=== PATIENT | male | born 1950 | race Caucasian/White ===

== ENCOUNTER → 2024-12-25 15:56 | Outpatient (CLI) | payer MEDICARE, OTHER, SELFPAY ==
--- NOTE | 2024-12-25 16:00 | DI.ECHO.S_ITS ---
[facility] : : [address] : : [place] : : [id number] : : Phone: [phone] Echocardiogram Report + + :Name: MEGHA AYALA Study Date: 12/25/2024 Height: 71 in : :[facility] ReadingLocation: Weight: 200 lb : : Gender: Male BSA: 2.1 m2 : :: 1950 Age: 74 yrs BP: 156/77 mmHg: :Reason For Study: HYPERTENSION : :Ordering Physician: JAZMIN, : :HERMAN Delgado Performed By: Brett Jacob : :Referring: HERMAN WU : + + Interpretation Summary The ejection fraction is estimated to be 60-65%. Diastolic function could not be accurately assessed due to contradictory data. The left atrium is mildly dilated. The right ventricle is normal in size and function. There is mild tricuspid regurgitation. Right ventricular systolic pressure is estimated to be 25 mmHg plus the clinically estimated CVP which cannot be estimated on this exam. Procedure: A two-dimensional transthoracic echocardiogram with color flow and Doppler was performed. The study quality was technically good. There is no prior echocardiogram noted for this patient. The patient was in normal sinus rhythm during the exam. Left Ventricle: The left ventricle is normal in size. There is normal left ventricular wall thickness. There is no ventricular septal defect visualized. The ejection fraction is estimated to be 60-65%. There are no focal wall motion abnormalities. Diastolic function could not be accurately assessed due to contradictory data. Right Ventricle: The right ventricle is normal in size and function. Atria: The left atrium is mildly dilated. Right atrial size is normal. There is no Doppler evidence for an atrial septal defect. Mitral Valve: The mitral valve leaflets appear normal. There is no evidence of stenosis, fluttering, or prolapse. There is trace mitral regurgitation. Aortic Valve: The aortic valve is trileaflet. The aortic valve opens well. There is no aortic valve stenosis. No aortic regurgitation is present. Tricuspid Valve: The tricuspid valve leaflets are thin and pliable. There is mild tricuspid regurgitation. Right ventricular systolic pressure is estimated to be 25 mmHg plus the clinically estimated CVP which cannot be estimated on this exam. Pulmonic Valve: The pulmonic valve leaflets are thin and pliable; valve motion is normal. There is trace pulmonic regurgitation. Great Vessels: The aortic root is normal size. The dimensions of the ascending aorta are normal. The pulmonary artery is normal size. The inferior vena cava was not visualized. Pericardium/ Pleura There is no pericardial effusion. MMode/2D Measurements & Calculations LVIDd: 4.9 cm LVOT diam: 2.3 cm LVIDs: 3.1 cm Ao root diam: 3.4 cm FS: 36.7 % asc Aorta Diam: 3.5 cm EPSS: 0.80 cm IVSd: 0.89 cm LVPWd: 0.91 cm LV felipe. diameter/BSA (cm/m^2): 2.3 LV sys. diameter/BSA (cm/m^2): 1.5 LA A2 area: 22.0 cm2 RA long axis: 4.9 cm LA A4 area: 23.7 cm2 RA area: 15.4 cm2 LA length (vol): 5.9 cm RA vol: 41.5 ml LA vol: 75.5 ml RA : 19.7 ml/m2 LA vol index: 35.8 ml/m2 RVD1 (basal): 3.9 cm RVD2 (mid): 2.8 cm TAPSE: 2.9 cm Doppler Measurements & Calculations Ao V2 max: 138.8 cm/sec LVOT Max Babak: 124.8 cm/sec Ao V2 mean: 102.9 cm/sec LV V1 max P.2 mmHg Ao max P.7 mmHg LV V1 VTI: 24.8 cm Ao mean P.7 mmHg SUSHIL(I,D): 3.2 cm2 Ao V2 VTI: 31.3 cm SUSHIL(V,D): 3.6 cm2 sev ratio: 0.79 SUSHIL indexed to BSA (cm^2/m^2): 1.5 MV E max babak: 65.2 cm/sec TR max babak: 265.9 cm/sec MV A max babak: 63.1 cm/sec TR max P.3 mmHg MV E/A: 1.0 PA V2 max: 78.2 cm/sec Med Peak E' Babak: 4.7 cm/sec PA V2 mean: 57.3 cm/sec E/E' med: 13.9 PA mean P.4 mmHg Lat Peak E' Babak: 8.0 cm/sec PA pr(Accel): 15.6 mmHg E/E' lat: 8.1 E/e' average: 11.0 MV dec time: 0.18 sec SV(LVOT): 99.4 ml Reading Physician:05:31 PM
== END ==
PROVIDERS: Referring Provider Family Medicine; Visit Provider Family Medicine
DX: I07.1 Rheumatic tricuspid insufficiency (principal); I49.3 Ventricular premature depolarization; I10 Essential (primary) hypertension
CPT/HCPCS: 93306